=== PATIENT | female | born 1965 | race Caucasian/White ===

== ENCOUNTER 2017-04-17 17:43 | Emergency (ER) | payer MEDICAID ==
[~2017-04-17] VITALS: Ht 152.4 cm; Wt 74.0 kg
[2017-04-17 19:23] LABS: BASOPHILS % 0.5 % (0.0-2.0); EOSINOPHILS % 2.3 % (0.0-5.0); HEMATOCRIT. 41.9 % (36.0-48.0); HEMOGLOBIN. 14.5 g/dL (12.0-16.0); LYMPHOCYTES % 30.3 % (20.0-50.0); MEAN CORPUSCULAR HEMOGLOBIN 29.5 pg (28.0-32.0); MEAN CORPUSCULAR VOLUME 85.5 fL (81.0-99.0); MONOCYTES % 6.8 % (2.0-8.0); NEUTROPHILS % 60.1 % (40.0-76.0); PLATELET 283 x1000/uL (130-400); RED CELL DISTRIBUTION WIDTH 13.3 % (11.6-14.6)
[2017-04-17 19:35] LABS: CARBON DIOXIDE 26 mEq/L (21-32); CHLORIDE 103 mEq/L (98-107)
[2017-04-17] MEDS ORDERED: SODIUM CHLORIDE 0.9% 1,000 ML IV ONE (19:40)
[2017-04-17] MEDS ORDERED: HYDROCODONE/ACETAMINOPHEN 10/325MG TABLET PO ONE (19:45)
[2017-04-17] MEDS ORDERED: KETOROLAC 30MG/ML VIAL IV ONE (19:45)
[2017-04-17] MEDS ORDERED: MORPHINE SULFATE 2 MG/ML CPJ (NOT FOR IM USE) IV ONE (22:30)
[2017-04-18 00:14] VITALS: BP 130/78
== END 2017-04-18 00:48 | disposition home or self-care (01) ==
LOC: ER 22:11
DX: R51 Headache (principal); M77.32 Calcaneal spur, left foot; I10 Essential (primary) hypertension; E11.9 Type 2 diabetes mellitus without complications; E78.00 Pure hypercholesterolemia, unspecified
CPT/HCPCS: 36415; 70450; 73600; 73630; 80053; 82962; 85025; 93971; 96361; 96374; 99285; J1885; J7030

== ENCOUNTER 2017-04-21 23:47 | Emergency (ER) | payer MEDICAID ==
[~2017-04-21] VITALS: Ht 152.4 cm; Wt 83.0 kg
[2017-04-22] MEDS ORDERED: IBUPROFEN 600MG TABLET PO ONE (02:30)
[2017-04-22 02:41] VITALS: BP 126/68
[2017-04-22 02:49] LABS: CLARITY URINE CLOUDY (CLEAR); COLOR URINE YELLOW (YELLOW); GLUCOSE URINE 1+ (NEGATIVE); KETONES URINE TRACE (NEGATIVE); LEUKOCYTE ESTERASE URINE NEGATIVE (NEGATIVE); NITRITE URINE NEGATIVE (NEGATIVE); OCCULT BLOOD URINE NEGATIVE (NEGATIVE); PROTEIN URINE TRACE (NEGATIVE); SPECIFIC GRAVITY URINE 1.033 (1.005-1.030); UROBILINOGEN URINE 0.2 E.U./dL (0.2-1.0)
== END 2017-04-22 04:00 | disposition home or self-care (01) ==
LOC: ER 23:47
DX: J02.9 Acute pharyngitis, unspecified (principal); N39.0 Urinary tract infection, site not specified; I10 Essential (primary) hypertension; E11.9 Type 2 diabetes mellitus without complications; E78.00 Pure hypercholesterolemia, unspecified
CPT/HCPCS: 81001; 87070; 87430; 99284

== ENCOUNTER 2017-09-30 22:54 | Emergency (ER) | payer MEDICAID ==
[2017-10-01 06:52] LABS: CLARITY URINE CLEAR (CLEAR); COLOR URINE YELLOW (YELLOW); KETONES URINE TRACE (NEGATIVE); LEUKOCYTE ESTERASE URINE NEGATIVE (NEGATIVE); NITRITE URINE NEGATIVE (NEGATIVE); OCCULT BLOOD URINE NEGATIVE (NEGATIVE); PROTEIN URINE NEGATIVE (NEGATIVE); SPECIFIC GRAVITY URINE 1.034 (1.005-1.030); UROBILINOGEN URINE 0.2 E.U./dL (0.2-1.0)
[2017-10-01] MEDS ORDERED: ACETAMINOPHEN 325MG TABLET PO ONE (07:15)
[2017-10-01 08:10] VITALS: BP 141/76
== END 2017-10-01 08:28 | disposition home or self-care (01) ==
LOC: ER 10-01
DX: N76.0 Acute vaginitis (principal); B96.89 Other specified bacterial agents as the cause of diseases classified elsewhere; I10 Essential (primary) hypertension; E11.9 Type 2 diabetes mellitus without complications
CPT/HCPCS: 81001; 87210; 99284

== ENCOUNTER 2018-09-27 11:04 | Emergency (ER) | payer MEDICAID ==
[~2018-09-27] VITALS: Ht 149.9 cm; Wt 78.0 kg
[2018-09-27] MEDS ORDERED: ACETAMINOPHEN 325MG TABLET PO STA (13:11)
[2018-09-27] MEDS ORDERED: ONDANSETRON HCL 4MG/2ML INJ IV STA (13:11)
[2018-09-27] MEDS ORDERED: MORPHINE SULFATE 4 MG/ML CPJ (NOT FOR IM USE) IV STA ×2 (13:11→17:36)
[2018-09-27 14:33] LABS: BASOPHILS % 0.2 % (0.0-2.0); EOSINOPHILS % 1.5 % (0.0-5.0); HEMATOCRIT. 47.3 % (36.0-48.0); HEMOGLOBIN. 16.2 g/dL (12.0-16.0); LYMPHOCYTES % 7.3 % (20.0-50.0); MEAN CORPUSCULAR HEMOGLOBIN 29.7 pg (28.0-32.0); MEAN PLATELET VOLUME 7.7 fl (7.4-10.4); PLATELET 286 x1000/uL (130-400); RED BLOOD CELL COUNT 5.44 mill/uL (4.2-5.4)
[2018-09-27 14:38] LABS: CHLORIDE 99 mEq/L (98-107)
[2018-09-27 14:39] LABS: INR 1.1; PROTHROMBIN TIME 10.7 sec (9.1-11.1)
[2018-09-27 15:00] LABS: CLARITY URINE CLEAR (CLEAR); COLOR URINE YELLOW (YELLOW); KETONES URINE NEGATIVE (NEGATIVE); LEUKOCYTE ESTERASE URINE NEGATIVE (NEGATIVE); NITRITE URINE NEGATIVE (NEGATIVE); OCCULT BLOOD URINE NEGATIVE (NEGATIVE); PROTEIN URINE NEGATIVE (NEGATIVE); SPECIFIC GRAVITY URINE 1.006 (1.005-1.030); UROBILINOGEN URINE 0.2 E.U./dL (0.2-1.0)
[2018-09-27] MEDS ORDERED: IOHEXOL-300 100 ML BOTTLE ONE (17:14)
[2018-09-27 19:29] VITALS: BP 140/83
== END 2018-09-27 19:31 | disposition home or self-care (01) ==
LOC: ER 11:04
DX: R10.11 Right upper quadrant pain (principal); R50.9 Fever, unspecified; R05 Cough; E11.9 Type 2 diabetes mellitus without complications; I10 Essential (primary) hypertension
CPT/HCPCS: 36415; 71045; 74177; 76705; 80053; 81003; 83690; 84484; 85025; 85610; 93005; 96374; 96375; 96376; 99284; J2270; J2405; Q9967

== ENCOUNTER 2019-04-29 20:35 | Emergency (ER) | payer MEDICAID ==
[~2019-04-29] VITALS: Ht 152.4 cm; Wt 77.0 kg
[2019-04-29 21:13] LABS: CLARITY URINE CLOUDY (CLEAR); COLOR URINE YELLOW (YELLOW); KETONES URINE TRACE (NEGATIVE); LEUKOCYTE ESTERASE URINE NEGATIVE (NEGATIVE); NITRITE URINE NEGATIVE (NEGATIVE); OCCULT BLOOD URINE NEGATIVE (NEGATIVE); PROTEIN URINE 1+ (NEGATIVE); SPECIFIC GRAVITY URINE 1.032 (1.005-1.030); UROBILINOGEN URINE 0.2 E.U./dL (0.2-1.0)
[2019-04-29 21:53] VITALS: BP 140/81
== END 2019-04-29 21:54 | disposition home or self-care (01) ==
LOC: ER 20:35
DX: N76.0 Acute vaginitis (principal); B96.89 Other specified bacterial agents as the cause of diseases classified elsewhere; N64.4 Mastodynia; E11.65 Type 2 diabetes mellitus with hyperglycemia; I10 Essential (primary) hypertension; Z76.0 Encounter for issue of repeat prescription
CPT/HCPCS: 81003; 82962; 99283

== ENCOUNTER 2023-02-11 17:23 | Emergency (ER) | payer MEDICAID ==
[~2023-02-11] VITALS: Ht 149.9 cm; Wt 72.0 kg
[2023-02-11 17:45] VITALS: BP 120/70; PULSE 83; RESP 18; TEMP 98.6; O2SAT 98
== END 2023-02-11 21:28 | disposition left against medical advice (07) ==
LOC: ER 17:59
DX: Z53.21 Procedure and treatment not carried out due to patient leaving prior to being seen by health care provider (principal)
CPT/HCPCS: 99281